=== PATIENT | female | born 1965 | race Caucasian/White ===

== ENCOUNTER 2020-07-15 12:50 | Outpatient (CLI) | payer OTHER, SELFPAY ==
--- NOTE | ~2020-07-15 | CT_ITS ---
EXAMINATION: CT BRAIN W/O DATE: 07/15/2020 13:43 INDICATION: Visual field defects. TECHNIQUE: Computed tomography (CT) of the head was performed without and with 100 cc Omnipaque 350 i ntravenous contrast. The dose-length product was 1210.67 mGy-cm. Automated exposure control and itera tive reconstruction technique were employed. COMPARISON: No prior studies for comparison. FINDINGS: Normal brain parenchymal volume for age. Normal spicer-white differentiation. No acute intrac ranial hemorrhage, infarction, mass or mass effect. No abnormal contrast enhancement. There are scatt ered mild periventricular and subcortical white matter changes, most likely related to small vessel i schemic disease (microangiopathy). No ventriculomegaly or midline shift. Midline sagittal images demonstrate a normal corpus callosum, c raniovertebral junction and sella turcica. Basilar cisterns are patent. Paranasal sinuses and mastoids are pneumatized. No depressed skull fractures. IMPRESSION: 1. No acute intracranial abnormality. Reviewed, dictated and finalized at location A.
--- NOTE | ~2020-07-15 | US_ITS ---
EXAMINATION: US carotid duplex BI DATE: 07/15/2020 14:03 INDICATION: Diplopia. Visual field defect. TECHNIQUE: Grayscale, color Doppler, and pulsed Doppler images of the cervical carotid arteries were obtained. The degree of vessel stenosis is placed in one of the following categories: normal, <50%, 5 0-69%, >=70% but less than near-occlusion, near-occlusion, or total occlusion. Note that percent sten osis relative to normal distal artery lumen diameter is indirectly measured from velocity measurement s as described by Carlos, et al. Radiology 2003; 229:340-346. COMPARISON: None. FINDINGS: RIGHT: The right common carotid artery (CCA) peak systolic velocity (PSV) is 78 cm/s. The right internal car otid artery (ICA) PSV is 84 cm/s. The right ICA end-diastolic velocity (EDV) is 30 cm/s. The right IC A/CCA PSV ratio is 1.1. Grayscale and color Doppler images yield an estimate of <50% diameter reducti on from plaque in the ICA. There is antegrade flow in the right vertebral artery. LEFT: The left CCA PSV is 74 cm/s. The left ICA PSV is 81 cm/s. The left ICA EDV is 30 cm/s. The left ICA/C CA PSV ratio is 1.1. Grayscale and color Doppler images yield an estimate of <50% diameter reduction from plaque in the ICA. There is antegrade flow in the left vertebral artery. IMPRESSION: 1. <50% stenosis in the right internal carotid artery. 2. <50% stenosis in the left internal carotid artery. Reviewed, dictated and finalized at location B.
[2020-07-15 13:31] LABS: Estimated Glomerular Filt Rate > 60
== END 2020-07-15 12:51 | disposition home or self-care (01) ==
PROVIDERS: PCP Family Medicine; Visit Provider Specialist
DX: H53.40 Unspecified visual field defects (principal); I65.23 Occlusion and stenosis of bilateral carotid arteries
CPT/HCPCS: 70470; 93880; Q9967

== ENCOUNTER → 2021-01-15 08:25 | Outpatient (CLI) | payer OTHER, SELFPAY ==
--- NOTE | ~2021-01-15 | US_ITS ---
EXAMINATION: US pelvic complete w TV EXAM DATE: 01/15/2021 08:50 INDICATION: Pelvic bloating, pain and tenderness. History of breast cancer. Takes tamoxifen. TECHNIQUE: Pelvic transabdominal and transvaginal sonogram was performed. There are multiple graysca le and Doppler images available for interpretation. There is no prior study for comparison. FINDINGS: Uterus measures 5.5 x 2.3 x 3.1 cm, is anteverted and morphologically normal. Endometrial stripe measures 4 mm, within normal limits. There are nabothian cysts. There is no free pelvic flu id. Right adnexa: The ovary is not identified. There is no adnexal mass. Left adnexa: The ovary is not identified. There is no adnexal mass. IMPRESSION: 1. Nabothian cysts. 2. Unremarkable uterus. 3. Ovaries not identified. Reviewed, dictated and finalized at location B. [facility]
== END ==
PROVIDERS: Visit Provider Obstetrics & Gynecology
DX: R10.2 Pelvic and perineal pain (principal); N88.8 Other specified noninflammatory disorders of cervix uteri
CPT/HCPCS: 76830; 76856

== ENCOUNTER 2021-03-20 16:16 | Outpatient (CLI) | payer OTHER, SELFPAY | END 2021-03-20 16:17 | disposition home or self-care (01) | LOC: ANHCOVIDVC 16:16 | DX: Z23 Encounter for immunization (principal) | CPT/HCPCS: 0001A; 91300 ==

== ENCOUNTER 2021-04-10 16:09 | Outpatient (CLI) | payer OTHER, SELFPAY | END 2021-04-10 16:10 | disposition home or self-care (01) | LOC: ANHCOVIDVC 16:09 | DX: Z23 Encounter for immunization (principal) | CPT/HCPCS: 0002A; 91300 ==

== ENCOUNTER → 2022-08-05 10:13 | Outpatient (CLI) | payer OTHER, SELFPAY ==
--- NOTE | ~2022-08-05 | DEXA_ITS ---
Bone Density Report Name: DEEPAK LINO Age: 56 Sex: Female Ethnicity: White Date of : 1965 Indication: postmenopausal; screening for osteoporosis; prior fracture; cancer; Referring Provider: Padmini Ibrahim Study: Bone densitometry was performed. Exam Date: August 05, 2022 Accession number: [id number] Bone Density: Region BMD T-score Z-score Classification AP Spine (L1-L4) 1.031 -0.1 0.9 Normal Femoral Neck (Left) 0.799 -0.4 0.6 Normal Total Hip (Left) 1.050 0.9 1.6 Normal Femoral Neck (Right) 0.699 -1.4 -0.3 Osteopenia Total Hip (Right) 0.957 0.1 0.8 Normal Total Hip Mean 1.004 0.5 1.2 Normal World Health Organization criteria for BMD impression classify patients as: Normal (T-score at or above -1.0), Osteopenia (T-score between -1.0 and -2.5), or Osteoporosis (T-score at or below -2.5). 10-year Fracture Risk(1): Major Osteoporotic Fracture 11% Hip Fracture 0.7% Reported Risk Factors: [place] (), Neck BMD=0.699, BMI=31.5, previous fracture (1) FRAX(R) Version 3.08. Fracture probability calculated for an untreated patient. Fracture probability may be lower if the patient has received treatment. Clinical Information Provided by Patient: Has had a low trauma fracture Has used the following medications: Reclast (i.e. zoledronate), Vitamin D, exemastane (aromatase inhibitor) Has the following medical conditions: Cancer Patient maximum height was 67 Menopause Age: 39 Drinks caffeinated beverages Onset of menses at age 13 Number of children 3 Impression: The patient has low bone mass, based on the Right Femoral Neck T-score. The patient has an estimated ten-year risk of hip fracture of 0.7% and an estimated ten-year risk of major fracture of 11%, based on the WHO FRAX algorithm. The patient has risk factors, including: previous fracture. Discussion: BONE DENSITY IS LOW AT ONE OR MORE SKELETAL SITES. This patient's lowest T-score is low at one or more skeletal sites. It meets the World Health Organization's (WHO) criteria for ?low bone mass? (T-score between -1.0 and -2.5). The patient's 10-year risk of fracture as calculated by FRAX is less than the threshold where pharmacological therapy is recommended by the National Osteoporosis Foundation (NOF). However, all treatment decisions require clinical judgment and consideration of individual patient factors, including patient preferences, comorbidities, previous drug use, risk factors not captured in the FRAX model (e.g., frailty, falls, vitamin D deficiency, increased bone turnover, interval significant decline in bone density) and possible under or overestimation of fracture risk by FRAX. The patient should follow a healthful lifestyle (good nutrition with adequate calcium and vitamin D, and appropriate weight-bearing exercise
== END ==
PROVIDERS: PCP Family Medicine
DX: Z51.81 Encounter for therapeutic drug level monitoring (principal); Z79.811 Long term (current) use of aromatase inhibitors; C50.412 Malignant neoplasm of upper-outer quadrant of left female breast; Z17.0 Estrogen receptor positive status [ER+]; M85.851 Other specified disorders of bone density and structure, right thigh
CPT/HCPCS: 77080